=== PATIENT | male | born 1965 | race Caucasian/White ===

== ENCOUNTER 2017-04-23 09:39 | Day surgery (SDC) | payer BC ==
--- NOTE | 2017-04-16 16:39 | HP ---
PREOPERATIVE HISTORY AND PHYSICAL: DATE OF SURGERY/ADMISSION: 04/23/17 [facility] DATE OF OFFICE VISIT/ENCOUNTER: 04/15/17 ATTENDING SURGEON: Vickie Jain MD * (DICTATED BY DAVID MCKEON) PROCEDURE: Left wrist 2 ganglion cyst excisions. CHIEF COMPLAINT: Two lumps, left wrist. HISTORY OF PRESENT ILLNESS: This is a 51-year-old male, who complains of 2 lumps on his left wrist that had been present for the past 3 weeks. One lump has actually been there longer, but has only been bothersome for 3 weeks. He has significant pain when something hits his wrist. He does not recall any specific injury. He does not think the lumps have gotten significantly bigger over time. He denies any associated tingling or numbness. This is his nondominant hand. He recently received a cortisone injection in the area of the lumps; however, he is looking for a more definitive treatment. He has consented to proceed with surgical intervention in the form of left wrist 2 ganglion cyst excision. PAST MEDICAL HISTORY: Unremarkable. PAST SURGICAL HISTORY: ORIF of clavicle fracture. CURRENT MEDICATIONS: None. ALLERGIES: CODEINE makes the patient feel anxious and loopy. FAMILY MEDICAL HISTORY: Unknown. The patient is adopted. 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 He is a current smoker. He smokes a pack to a pack and a half per day and has done so since age 13. He denies recreational drug use. He drinks alcohol on regular occasion usually 2 glasses of wine per day. REVIEW OF SYSTEMS: General: Negative for fevers, chills, or night sweats. No known anesthesia problems. HEENT: Negative for headache, lightheadedness, or syncopal episodes. Integumentary: Negative for abrasions, lesions, or open wounds. Cardiothoracic: Negative for hypertension, chest pain, palpitations, or edema. Pulmonary: Negative for shortness of breath with exertion, chronic cough, COPD. GI: Negative for nausea, vomiting, diarrhea, constipation, or GERD. : Negative for nocturia, urinary frequency, urgency, history of UTIs, or kidney problems. Musculoskeletal: Positive for current complaint. Negative for chronic or intermittent back pain. Neurologic: Negative for paresthesias, numbness, history of seizure, stroke, or epilepsy. Endocrine: Negative for diabetes and thyroid issues. Hematologic: Negative for easy bruising, anemia, excessive bleeding, or history of DVT. Infectious Disease: Negative for history of MRSA, hepatitis C, or HIV. PHYSICAL EXAMINATION GENERAL: Well-developed, well-nourished 51-year-old male, in no acute distress. VITAL SIGNS: Height 5 feet 11 inches, weight 225 pounds, pulse rate 80, blood pressure 148/90. HEENT: Normocephalic, atraumatic. Pupils are equal, round, and reactive to light and accommodation. Extraocular movements are intact. Throat is clear. NECK: Supple. No palpable lymph nodes. PULMONARY: Lungs are clear to auscultation bilaterally. No wheezes, rales, or rhonchi. CARDIOVASCULAR: Regular rate and rhythm. S1 and S2. No murmurs, rubs, or gallops. No edema. ABDOMEN: Positive bowel sounds, soft, nontender. MUSCULOSKELETAL: On exam of his left upper extremity in his left wrist in particular, he has 2 masses, one is on the first compartment tendon sheath and one is on the volar radial aspect of the wrist. Both are tender to palpation, but the more radial mass is markedly more tender. Each mass measures about a centimeter in diameter. He has a positive Yunior's test. A palpable radial pulse and neurovascular function is intact. NEUROLOGIC: Alert and oriented x3. Cranial nerves II through XII are intact. Sensation is intact to light touch. SKIN: Intact. IMAGING STUDIES: X-rays AP, lateral, and oblique of the left wrist appear normal. IMPRESSION: Ganglion cyst of the left wrist volar, radial and a mass on the first compartment tendon sheath. PLAN: The patient is scheduled to undergo a left wrist 2 ganglion cyst excision with Dr. Jain on 04/23/17. He will return to the office in 10 to 14 days postop for followup and suture removal. A prescription for Ultracet was e- scribed to the patient's pharmacy for postoperative pain management. DAVID MCKEON [id number]/[facility] #: [id number] NIKITA
[~2017-04-23 09:39] MED LIST: Buffered Lidocaine 0.9% SYRIN* 5 ML/SYR SYRINGE INTRADERM ONE; DiMENhydriNATE IV* 50 MG/ML VIAL IV PUSH PRN; Famotidine IV* 10 MG/ML 2 ML (20 mg) IV ONE; Morphine INJ* 2 MG/ML 1 ML CARPUJECT IV PRN; PROCHLORPERAZINE INJ 5 MG/ML 2 ML VIAL IV PRN; Scopolamine 1.5 mg* PATCH TRANSDERM PRN; fentaNYL* 50 MCG/ML 2 ML VIAL (100 MCG VIAL) IV PRN; oxyCODONE/Acetamin 5/325 MG* TAB PO PRN
[2017-04-23] MEDS ORDERED: Famotidine IV* 10 MG/ML 2 ML (20 mg) ONE (09:41)
[2017-04-23] MEDS ORDERED: KETAMINE HCL* 50 MG/ML 10 ML VIAL ONE (10:21)
[2017-04-23] MEDS ORDERED: fentaNYL* 50 MCG/ML 2 ML VIAL (100 MCG VIAL) ONE (10:21)
[2017-04-23] MEDS ORDERED: Midazolam* 1 MG/ML 5 ML VIAL (5 MG) ONE (10:21)
[2017-04-23] MEDS ORDERED: Lidocaine 1% INJ* 10 MG/ML 30 ML SDV ONE (10:55)
[2017-04-23] MEDS ORDERED: Propofol* 10 MG/ML 20 ML BTL IV PUSH ONE (11:37)
[2017-04-23] MEDS ORDERED: Labetalol IV* 5 MG/ML 20 ML VIAL ONE (11:37)
[2017-04-23] MEDS ORDERED: Lidocaine 2% PF * 5 ML VIAL ONE (11:37)
[2017-04-23 14:12] VITALS: BP 135/87
--- NOTE | 2017-04-24 09:08 | OP ---
DATE OF OPERATION: 04/23/17 [facility] DATE OF : 61 SURGEON: Vickie Jain MD. TECHNICAL ASSISTANCE CONSULTANT: DAVID Campoverde. ANESTHESIOLOGIST: Al Rudolph MD ANESTHESIA: Local MAC. PRE-OP DIAGNOSIS: Ganglion cysts of the left wrist. POST-OP DIAGNOSIS: Ganglion cysts of the left wrist. OPERATIVE PROCEDURE: Ganglion cyst excision, left wrist. ESTIMATED BLOOD LOSS: Zero. TOURNIQUET TIME: About 15 minutes. INDICATIONS: Desean is a 51-year-old man who has two masses on the volar and radial aspects of his left wrist. He presents for removal. DESCRIPTION OF PROCEDURE: The patient was brought to the operating room, was given a sedation anesthetic and a local infiltration of 10 cc of 1% plain lidocaine on the volar radial aspect of his left wrist. The skin of his left hand and forearm was prepped and draped in the usual sterile fashion. The hand and forearm were exsanguinated and the tourniquet elevated 250 mmHg. A chevron incision was made centered on the volar radial aspect of the wrist and we dissected bluntly through the subcutaneous tissue. There was a ganglion cyst emanating from the volar radiocarpal joint capsule, this was excised with a small portion of the wrist capsule and the edges of the capsule were cauterized with a Bovie. There was a second cyst emanating from the first dorsal compartment sheath, this was removed and the first compartment sheath was completely released. The APL and EPV tendons were in good condition and were in separate compartments, both were completely released. The wound was irrigated and the skin edges were reapproximated with 4-0 nylon suture. The wound was dressed with Xeroform, 4x4, Webril and an Higinio wrap. The patient tolerated the procedure well and was brought to the recovery room in good condition. [id number]/[facility] #: [id number] MTDD
[2017-04-26] MEDS ORDERED: Scopolamine PATCH Remove* 1 NOTE MISC PATCH OFF ONE (05:52)
== END 2017-04-23 12:47 | disposition home or self-care (01) ==
LOC: OREAST 09:39
PROVIDERS: ATTEND Orthopaedic Surgery
DX: M67.432 Ganglion, left wrist (principal); F17.210 Nicotine dependence, cigarettes, uncomplicated
CPT/HCPCS: 88304; J2001; J2250; J2704; J3010

== ENCOUNTER 2017-07-23 10:52 | Emergency (ER) | payer BC ==
[2017-07-23] MEDS ORDERED: NS 0.9% 1000 ML* 1,000 ML IV ONE (11:02)
[2017-07-23] MEDS ORDERED: Morphine INJ* 4 MG/ML 1 ML CARPUJECT IV ONE (11:02)
[2017-07-23] MEDS ORDERED: Ondansetron INJ* 2 MG/ML VIAL IV ONE (11:02)
[2017-07-23] MEDS ORDERED: Morphine INJ* 4 MG/ML 1 ML SYRINGE (NEW SYRINGE VERSION) ONE (11:15)
[2017-07-23 11:21] LABS: ABS Basophils 0.1 10^3/ul (0-0.2); ABS Eosinophils 0.2 10^3/ul (0-0.6); ABS Lymphocytes 2.3 10^3/ul (1.0-4.8); ABS Monocytes 0.5 10^3/ul (0-0.8); ABS Neutrophils 4.5 10^3/ul (1.5-7.7); ABS Nucleated RBC 0 10^3/ul; Eosinophil % 2.7 % (0-6); Hematocrit 44 % (42-52); Hemoglobin 15.7 g/dl (14.0-18.0); Lymphocyte % 30.3 % (25-47); Mean Corpuscular HGB Conc 36 g/dl (31-36); Mean Corpuscular Hemoglobin 34 pg (27-31); Mean Corpuscular Volume 95 fL (80-94); Mean Platelet Volume 7 um3 (7.4-10.4); Nucleated Red Blood Cells % 0.4; Platelet Count 191 10^3/ul (150-450); Red Blood Count 4.66 10^6/ul (4.0-5.4); Red Cell Distribution Width 13 % (10.5-15); White Blood Count 7.6 10^3/ul (3.5-10.8)
[2017-07-23 11:30] LABS: EGFR Non-African American 73.9 (>60)
[2017-07-23] MEDS ORDERED: Iohexol 300* (CONTRAST) 10 ML SDV IV ONE (11:33)
[2017-07-23 12:40] LABS: Urine Appearance Clear; Urine Blood Negative (Negative); Urine Color Yellow; Urine Ketones Negative (Negative); Urine Protein Negative (Negative); Urine Specific Gravity 1.009 (1.010-1.030); Urine Urobilinogen Negative (Negative)
--- NOTE | 2017-07-23 13:00 | RAD ---
INDICATION: Abdominal pain. COMPARISON: There are no prior studies available for comparison. TECHNIQUE: A CT scan of the abdomen and pelvis was performed with intravenous and oral contrast following intravenous injection of 144 ml of Omnipaque 300 nonionic contrast. Contiguous axial sections were obtained from the lung bases through the symphysis pubis. Images were reconstructed in the coronal and sagittal planes. FINDINGS: There is mild subsegmental atelectasis in both lower lobes seen at the lung bases. No pleural effusion is present. The liver and spleen are mildly enlarged. The liver is decreased in attenuation consistent with fatty infiltration. No significant focal hepatic abnormality is seen. No calcified gallstones are noted. No intra or extrahepatic ductal distention is present. The pancreas appears to be within normal limits. There appears to be an accessory spleen within the splenic hilum. The kidneys and adrenal glands are normal in size. No hydronephrosis is seen. No significant focal renal abnormality is seen. There is a left inguinal hernia containing fat and the anterior inferior portion of the urinary bladder. The bladder wall in that area appears thickened and there is interstitial stranding in the adjacent mesenteric fat. The aorta is normal in caliber with mild calcific plaque present. No significant enlarged retroperitoneal lymph nodes are seen. There appears to be a small hiatal hernia. The stomach, small and large bowel appear nondistended. The appendix is within normal limits. There is mild descending and sigmoid diverticulosis without evidence for diverticulitis. No free intraperitoneal air or fluid is seen. No significant focal osseous abnormality is seen. IMPRESSION: 1. THERE IS A LEFT INGUINAL HERNIA CONTAINING FAT AND THE ANTERIOR INFERIOR PORTION OF THE URINARY BLADDER. THE URINARY BLADDER WALL IN THAT AREA IS THICKENED WITH ADJACENT INTERSTITIAL STRANDING SUGGESTING INFLAMMATION LESS LIKELY A MASS. RECOMMEND CYSTOSCOPY FOR FURTHER EVALUATION. 2. MILD HEPATOSPLENOMEGALY AND HEPATIC STEATOSIS. 3. SMALL HIATAL HERNIA.
[2017-07-23] MEDS ORDERED: Morphine INJ* 10 MG/ML 1 ML CARPUJECT IV ONE (14:21)
[2017-07-23 14:40] VITALS: BP 135/76
--- NOTE | 2017-07-24 18:20 | ED ---
Trip Atkinson Angela, scribed for Gus Valle MD on 07/23/17 at 1056 . Abdominal Pain/Male - HPI Summary HPI Summary: This pt is a 51 y/o male presenting to [facility] via EMS c/o sudden abdominal pain today. 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 He notes he also felt very nauseous. Pt went to the bathroom but denies vomiting. He currently rates his pain 7/10 in severity. He reports his last bowel movement was this morning and it was normal. PMHx: kidney stones (approx 5 years ago). Pt states this pain does not feel like a kidney stone. Denies cardiac hx. Pt was taking medications for his sore throat last week. Allergic to codeine. - History of Current Complaint Chief Complaint: EDAbdPain Stated Complaint: ABD PAIN Hx Obtained From: Patient, EMS Onset/Duration: Lasting Hours, Still Present Timing: Lasting Hours Severity Currently: Severe Pain Intensity: 7 Pain Scale Used: 0-10 Numeric Location: Diffuse Radiates: No Aggravating Factor(s): Nothing Alleviating Factor(s): Nothing Associated Signs And Symptoms: Positive: Nausea. Negative: Vomiting, Diarrhea - Allergies/Home Medications Allergies/Adverse Reactions: Allergies Allergy/AdvReac Type Severity Reaction Status Date / Time MS Codeine [Codeine] Allergy Altered Verified 04/23/17 09:55 Mental Status PMH/Surg Hx/FS Hx/Imm Hx Endocrine/Hematology History: Denies: Hx Anticoagulant Therapy, Hx Diabetes Cardiovascular History: Denies: Hx Hypertension History: Reports: Hx Kidney Stones Sensory History: Reports: Hx Contacts or Glasses - GLASSES Opthamlomology History: Reports: Hx Contacts or Glasses - GLASSES - Surgical History Surgery Procedure, Year, and Place: ORIF RT [facility] Hx Anesthesia Reactions: No - Family History Known Family History: Negative: Cardiac Disease, Hypertension, Diabetes - Social History Alcohol Use: Occasionally Alcohol Amount: 2 GLASSES MOST EVENINGS Substance Use Type: Reports: None Smoking Status (MU): Heavy Every Day Tobacco Smoker Type: Cigarettes Amount Used/How Often: 1PPD 30 + YEARS Length of Time of Smoking/Using Tobacco: 30+ YEARS Have You Smoked in the Last Year: Yes Review of Systems Negative: Fever, Chills Positive: Abdominal Pain, Nausea. Negative: Vomiting Musculoskeletal: Negative Skin: Negative Neurological: Negative All Other Systems Reviewed And Are Negative: Yes Physical Exam - Summary Physical Exam Summary: VITAL SIGNS: Reviewed. GENERAL: Patient is a well-developed and nourished male who is lying comfortable in the stretcher. Patient is not in any acute respiratory distress. HEAD AND FACE: Normocephalic and atraumatic. EYES: PERRLA, EOMI x 2, No injected conjunctiva. EARS: Hearing grossly intact. Ear canals and tympanic membranes are WNL. MOUTH: Oropharynx within normal limits. NECK: Supple, trachea is midline, no adenopathy, no JVD. CHEST: Symmetric, no tenderness at palpation LUNGS: Clear to auscultation bilaterally. No wheezing or crackles. CVS: RRR, S1 and S2 present, no murmurs or gallops appreciated. ABDOMEN: Soft. Left lower quadrant tenderness. No signs of distention. Positive bowel sounds. No rebound no guarding, and no masses palpated. No abdominal bruit or pulsations. EXTREMITIES: FROM in all major joints, no edema, no cyanosis or clubbing. NEURO: Alert and oriented x 3. No acute neurological deficits. Speech is normal. SKIN: Dry and warm Triage Information Reviewed: Yes Vital Signs On Initial Exam: Initial Vitals Temp Pulse Resp BP Pulse Ox 97.8 F 93 22 168/92 96 07/23/17 10:55 07/23/17 10:55 07/23/17 10:55 07/23/17 10:55 07/23/17 10:55 Vital Signs Reviewed: Yes Diagnostics - Laboratory Result Diagrams: 07/23/17 11:03 07/23/17 11:03 Lab Statement: Any lab studies that have been ordered have been reviewed, and results considered in the medical decision making process. - CT Abdomen/Pelvis CT CT Interpretation: Positive (See Comments) - IMPRESSION: 1. There is a left inguinal hernia containing fat and the anterior inferior portion of the urinary bladder. The urinary bladder wall in that area is thickened with adjacent interstitial stranding suggesting inflammation less likely a mass. Recommend cystoscopy for further evaluation. 2. Mild hepatosplenomegaly and hepatic steatosis. 3. Small hiatal hernia. Dr. Valle has reviewed this radiology report. CT Interpretation Completed By: Radiologist Abdominal Pain Fem Course/Dx - Course Assessment/Plan: This pt is a 51 y/o male presenting to [facility] via EMS c/o sudden abdominal pain today. 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 He notes he also felt very nauseous. Pt went to the bathroom but denies vomiting. He currently rates his pain 7/10 in severity. He reports his last bowel movement was this morning and it was normal. PMHx: kidney stones (approx 5 years ago). Pt states this pain does not feel like a kidney stone. Test results without any significant abnormalities. In the ED course the pt was given IV fluids, morphine, and Zofran. Abdomen/Pelvis CT shows 1. There is a left inguinal hernia containing fat and the anterior inferior portion of the urinary bladder. The urinary bladder wall in that area is thickened with adjacent interstitial stranding suggesting inflammation less likely a mass. Recommend cystoscopy for further evaluation. 2. Mild hepatosplenomegaly and hepatic steatosis. 3. Small hiatal hernia. I discussed the case with Dr. Ruff, surgeon, who reviewed the pt's CT. He reports the pt has an inguinal hernia that is not incarcerated and therefore it is not urgent. He recommends to discharge the pt home with pain medications and follow up with him in his office. Therefore, pt will be discharged to home with follow up from Dr. Ruff. Pt will be prescribed Percocet for the pain. Pt is hemodynamically stable, alert and oriented x3. - Diagnoses Provider Diagnoses: Inguinal hernia - Provider Notifications Discussed Care Of Patient With: Mk Ruff Time Discussed With Above Provider: 13:54 Instructed by Provider To: Other - I discussed pt care with Dr. Ruff, surgeon , who reviewed the pt's CT. He reports the pt has an inguinal hernia that is not incarcerated and therefore it is not urgent. He recommends to discharge the pt home with pain medications and follow up with him in his office. Discharge - Discharge Plan Condition: Stable Disposition: HOME Prescriptions: oxyCODONE/Acetamin 5/325 MG* [Percocet 5/325 TAB*] 1 tab PO Q6H PRN #15 tab MDD 4 PRN Reason: Pain Patient Education Materials: Inguinal Hernia (ED) Referrals: Cyrus Anne MD [Primary Care Provider] - Mk Ruff MD [Medical Doctor] - 3 Days Additional Instructions: Please follow up with Dr. Ruff, surgeon. RETURN TO THE ED FOR ANY WORSENING SYMPTOMS. The documentation as recorded by the Trip reza Angela accurately reflects the service I personally performed and the decisions made by me, Gus Valle MD.
== END 2017-07-23 14:39 | disposition home or self-care (01) ==
LOC: ED 10:52
DX: K40.90 Unilateral inguinal hernia, without obstruction or gangrene, not specified as recurrent (principal); R16.2 Hepatomegaly with splenomegaly, not elsewhere classified; K76.0 Fatty (change of) liver, not elsewhere classified; K44.9 Diaphragmatic hernia without obstruction or gangrene; F17.210 Nicotine dependence, cigarettes, uncomplicated; Z87.442 Personal history of urinary calculi; Z88.5 Allergy status to narcotic agent
CPT/HCPCS: 36415; 74177; 80053; 81003; 82550; 83605; 83690; 83735; 83880; 84484; 85025; 86140; 96374; 96375; 96376; 99284; J2270; J2405; Q9967

== ENCOUNTER 2018-10-08 08:28 | Emergency (ER) | payer BC ==
--- NOTE | 2018-10-08 08:36 | ED ---
Back Pain - HPI Summary HPI Summary: Pt. is a 53 y.o male who presents to the ER for low back pain since yesterday. Pt. states he was leaning over the sink brushing teeth when he developed low back pain and tightness. Pain does not radiate into legs and denies numbness, tingling or weakness. Miki bowel or bladder incontinence or retention. Denies fever, abd. pain, V/D, urinary sxs. Pt. states he had these sxs last year and went through PT and symptoms resolved. He also had an MRI last fall and he reportedly states that it was essentially normal. Sxs are mild in severity. Movement makes sxs worse. Nothing makes sxs better. - History of Current Complaint Chief Complaint: EDBackInjuryPain Stated Complaint: BACK PAIN PER PT Time Seen by Provider: 10/08/18 08:35 Hx Obtained From: Patient Pain Intensity: 10 - Allergies/Home Medications Allergies/Adverse Reactions: Allergies Allergy/AdvReac Type Severity Reaction Status Date / Time codeine Allergy Altered Verified 10/08/18 08:33 Mental Status Home Medications: Home Medications Ibuprofen TAB* [Advil TAB*] 400 mg PO Q6H PRN 10/08/18 [History Confirmed ] PMH/Surg Hx/FS Hx/Imm Hx Previously Healthy: Yes Endocrine/Hematology History: Denies: Hx Anticoagulant Therapy, Hx Diabetes Cardiovascular History: Denies: Hx Hypertension History: Reports: Hx Kidney Stones Denies: Hx Renal Disease Sensory History: Reports: Hx Contacts or Glasses - GLASSES Opthamlomology History: Reports: Hx Contacts or Glasses - GLASSES - Surgical History Surgery Procedure, Year, and Place: ORIF RT [facility] Hx Anesthesia Reactions: No Infectious Disease History: No Infectious Disease History: Denies: Traveled Outside the [place] in Last 30 Days - Family History Known Family History: Positive: None Negative: Cardiac Disease, Hypertension, Diabetes - Social History Occupation: Employed Full-time Lives: With Family Alcohol Use: Occasionally Alcohol Amount: 2 GLASSES MOST EVENINGS Substance Use Type: Reports: None Smoking Status (MU): Heavy Every Day Tobacco Smoker Type: Cigarettes Amount Used/How Often: 1PPD 30 + YEARS Length of Time of Smoking/Using Tobacco: 30+ YEARS Have You Smoked in the Last Year: Yes Review of Systems Constitutional: Negative Negative: Fever, Chills Cardiovascular: Negative Respiratory: Negative Gastrointestinal: Negative Genitourinary: Negative Negative: flank pain, incontinence, urgency Positive: Other - low back pain Skin: Negative Negative: Rash Negative: Weakness, Paresthesia, Numbness All Other Systems Reviewed And Are Negative: Yes Physical Exam Triage Information Reviewed: Yes Vital Signs On Initial Exam: Initial Vitals Temp Pulse Resp BP Pulse Ox 97.7 F 102 20 168/90 99 10/08/18 08:29 10/08/18 08:29 10/08/18 08:29 10/08/18 08:29 10/08/18 08:29 Vital Signs Reviewed: Yes Appearance: Positive: Well-Appearing - Pt. sitting on side of bed in NAD. Appears uncomfortable with movement. Skin: Positive: Warm, Dry Head/Face: Positive: Normal Head/Face Inspection Eyes: Positive: Normal, EOMI Neck: Positive: Supple Musculoskeletal: Positive: Normal, Strength/ROM Intact, Other - 5/5 strength in bilateral LEs. 2/4 patellar DTR. No reproducible pain on palpation of back. Pt. notes pain is mid lumbar paraspinal region. No rash. Neurological: Positive: Normal, CN Intact II-III Psychiatric: Positive: Affect/Mood Appropriate Diagnostics - Vital Signs Vital Signs Temp Pulse Resp BP Pulse Ox 10/08/18 08:29 97.7 F 102 20 168/90 99 - Laboratory Lab Statement: Any lab studies that have been ordered have been reviewed, and results considered in the medical decision making process. Back Pain Course/Dx - Course Course Of Treatment: Pt. presenting for low back pain. Afebrile. No neuro sxs. Suspect muscle spasm. Advised pt. the ER does not give cortisone injections that he was hoping to have today. Pt. notes he has narcotic pain medication as at and does not want a muscle relaxer as he does not want to be sleepy for work. Lidocaine patch applied. Advised pt. he will need to be referred to pain clinic for injection by PCP. Apply warm compresses. Avoid heavy lifting. Return to ER if sxs change or worsen. - Diagnoses Differential Diagnosis/HQI/PQRI: Positive: Arthritis, Herniated Disc, Strain, Sprain Provider Diagnoses: Muscle spasm of back, Lumbar pain Discharge - Sign-Out/Discharge Documenting (check all that apply): Patient Departure Patient Received Moderate/Deep Sedation with Procedure: No - Discharge Plan Condition: Good Disposition: HOME Prescriptions: Lidocaine PATCH 5%* [Lidoderm 5% Patch*] 1 patch TRANSDERM DAILY #7 patch Patient Education Materials: Muscle Spasm (ED) Referrals: Cyrus Anne MD [Primary Care Provider] - Genie Emmanuel MD [Medical Doctor] - Additional Instructions: Please call your PCP today for a referral to the [facility] to be scheduled for a cortisone injection Apply warm compresses to back Gentle stretching and massage Can try over the counter magnesium supplement for muscle relaxation Return to ER if symptoms change or worsen - Billing Disposition and Condition Condition: GOOD Disposition: Home
[2018-10-08] MEDS ORDERED: Lidocaine PATCH 5%* 1 PATCH TRANSDERM SCH (09:00)
[2018-10-08 09:45] VITALS: BP 148/97
[2018-10-08] MEDS ORDERED: Lidocaine Patch REMOVE* 1 NOTE MISC PATCH OFF SCH (21:00)
== END 2018-10-08 09:44 | disposition home or self-care (01) ==
LOC: ED 08:28
DX: M54.5 Low back pain (principal); M62.830 Muscle spasm of back; F17.210 Nicotine dependence, cigarettes, uncomplicated; Z88.5 Allergy status to narcotic agent; Z87.442 Personal history of urinary calculi
CPT/HCPCS: 99282; A9270-GY

== ENCOUNTER 2019-01-18 07:49 | Emergency (ER) | payer BC ==
[2019-01-18 08:07] VITALS: BP 146/92
--- NOTE | 2019-01-18 08:19 | UC ---
Abdominal Pain Male HPI - HPI Summary HPI Summary: Patient is 53 year old male, who present today to the urgent care with diarrhea for past 5 days. He reports that he started noticing loose stools on Saturday night. Had about 5- 6 bowel movements that night which had progressively got worse and yesterday had about 7 bowel movements before evening and had 2 more bowel movements during the night. He feels like he has been 15 times to the bathroom since morning. And also reports generalized abdominal pain. He denies any blood or mucus in stool and stool is reported as brownish yellow and watery. He denies any nausea, vomiting or any fevers. Denies any urinary symptoms. He is able to tolerate by mouth very well. Denies any recent travel, antibiotic use, any new food or any sick family member. He does report that he goes to the [place] very often kayaking and can get wet and concern about questionable algae carlin but he denies any skin rash or neurological symptoms. Over the summer he had more constipation that resolved on its own and denied testing done for that. - History of Current Complaint Chief Complaint: UCAbdominalPain Stated Complaint: ABDOMINAL COMPLAINT Time Seen by Provider: 01/18/19 08:01 Hx Obtained From: Patient Pain Intensity: 3 - Allergies/Home Medications Allergies/Adverse Reactions: Allergies Allergy/AdvReac Type Severity Reaction Status Date / Time codeine Allergy Altered Verified 01/18/19 08:07 Mental Status PMH/Surg Hx/FS Hx/Imm Hx - Additional Past Medical History Additional PMH: Past Medical History : None Past Surgical History: Hernia repair in 2017, ORIF clavicle Family History : non contributory Social History : Daily alcohol, daily smoker, no drug use. . Previously Healthy: Yes Other History Of: Negative For: Anticoagulant Therapy - Surgical History Surgical History: Yes Surgery Procedure, Year, and Place: ORIF RT [facility]. hernia 2017 - Family History Known Family History: Positive: None, Non-Contributory Negative: Cardiac Disease, Hypertension, Diabetes - Social History Alcohol Use: Daily Alcohol Amount: 2 GLASSES MOST EVENINGS Substance Use Type: None Smoking Status (MU): Heavy Every Day Tobacco Smoker Type: Cigarettes Amount Used/How Often: 1PPD 30 + YEARS Length of Time of Smoking/Using Tobacco: 30+ YEARS Have You Smoked in the Last Year: Yes Household Exposure Type: Cigarettes Review of Systems All Other Systems Reviewed And Are Negative: Yes Constitutional: Positive: Negative Skin: Positive: Negative Eyes: Positive: Negative ENT: Positive: Negative Respiratory: Positive: Negative Cardiovascular: Positive: Negative Gastrointestinal: Positive: Abdominal Pain - Generalized, Diarrhea. Negative: Vomiting, Nausea Genitourinary: Positive: Negative Motor: Positive: Negative Neurovascular: Positive: Negative Musculoskeletal: Positive: Negative Neurological: Positive: Negative Psychological: Positive: Negative Is Patient Immunocompromised?: No Physical Exam - Summary Physical Exam Summary: Vital Signs Reviewed: Yes Physical Exam: Const: Appears well. No signs of apparent distress present. Alert and oriented x 3. Musculo: Walks with a normal gait. Head/Face: Atraumatic, normocephalic on inspection. Eyes: EOMI and PERRLA in both eyes. Conjunctivae clear. No discharge noted ENT: Hearing normal Respiratory: Respirations are unlabored. Lungs clear to auscultation bilaterally, no wheezing , rhonchi or rales noted . CVS: Regular rate and Rhythm, S1S2 normal , no murmurs identified. Extremities: Peripheral circulation is grossly normal. Pulses 2+ Abdomen : Soft mild generalized tenderness without any localization, nondistended , Bowel sounds present and hyperkinetic. No guarding , rebound tenderness or rigidity noted. Skin: No lesions or rash located on the upper extremities or on the lower extremities. Neuro: Cranial nerves II to XII intact, motor and sensory intact. DTR Intact bilaterally. Mood is normal. Affect is normal. Triage Information Reviewed: Yes Vital Signs: Initial Vital Signs Temp 96.0 F 01/18/19 08:00 Pulse 96 01/18/19 08:00 Resp 19 01/18/19 08:00 BP 146/92 01/18/19 08:00 Pulse Ox 94 01/18/19 08:00 Vital Signs Reviewed: Yes Abd Pain Male Course/Dx - Course Course Of Treatment: During the visit today, we obtained stool studies . Suspect viral enterocolitis. Allergy carlin can also cause GI symptoms but he denies any rash or neurological symptoms. Still the treatment will be supportive. I advised him that somebody will call her with the test results and appropriate recommendation based on the findings of the stool studies We discussed the findings and further plan with supportive care and maintain hydration. Patient expressed understanding . - Differential Dx/Clinical Impression Provider Diagnosis: Enterocolitis Discharge - Sign-Out/Discharge Documenting (check all that apply): Patient Departure All imaging exams completed and their final reports reviewed: No Studies - Discharge Plan Condition: Stable Disposition: HOME Patient Education Materials: Acute Diarrhea (ED), Nutrition Tips for Relief of Diarrhea (ED) Referrals: Cyrus Anne MD [Primary Care Provider] - Additional Instructions: Someone will call you with the test results of stool studies if anything is abnormal and advise appropriate treatment. Maintain hydration, electrolyte water like Gatorade will be helpful BRAT diet Follow up with your primary care doctor in 2 days. Patients blood pressure slightly high in Urgent care today , plan follow up with PCP for better control within 4 weeks Return to Urgent care / ER if symptoms get worse. - Billing Disposition and Condition Condition: STABLE Disposition: Home
--- NOTE | 2019-01-19 11:58 | UC ---
- Progress Note Progress Note: Stool samples come back from January 18, 2019. Positive for Giardia. Negative for cryptosporidium. Positive for fecal lactoferrin. Shiga toxin was negative C. difficile was negative. Nursing to call patient I have called in a prescription for metronidazole 500 mg twice a day for 7 days. If not improving or worse patient's to get reevaluated. Otherwise follow-up with primary care physician. Course/Dx - Diagnoses Provider Diagnoses: Enterocolitis Discharge - Sign-Out/Discharge Documenting (check all that apply): Patient Departure All imaging exams completed and their final reports reviewed: No Studies - Discharge Plan Condition: Stable Disposition: HOME Prescriptions: metroNIDAZOLE [Flagyl] 500 mg PO BID #14 tablet Patient Education Materials: Acute Diarrhea (ED), Nutrition Tips for Relief of Diarrhea (ED) Referrals: Cyrus Anne MD [Primary Care Provider] - 2 Days Additional Instructions: Someone will call you with the test results of stool studies if anything is abnormal and advise appropriate treatment. Maintain hydration, electrolyte water like Gatorade will be helpful BRAT diet Follow up with your primary care doctor in 2 - 3 days. Patients blood pressure slightly high in Urgent care today , plan follow up with PCP for better control within 4 weeks Return to Urgent care / ER if symptoms get worse. - Billing Disposition and Condition Condition: STABLE Disposition: Home
== END 2019-01-18 09:00 | disposition home or self-care (01) ==
LOC: UCEAST 07:49
DX: K52.9 Noninfective gastroenteritis and colitis, unspecified (principal); F17.210 Nicotine dependence, cigarettes, uncomplicated; Z88.5 Allergy status to narcotic agent
CPT/HCPCS: 82270; 83630; 87045; 87046; 87177; 87209; 87328; 87329; 87425; 87493; 87899; 99211; G0463